=== PATIENT | male | born 1940 | race Asian ===

== ENCOUNTER 2020-08-16 14:22 | Emergency (ER) | payer OTHER ==
[~2020-08-16] VITALS: Ht 182.9 cm; Wt 131.5 kg
[2020-08-16 14:35] VITALS: TEMP 97
[2020-08-16 15:26] LABS: PLATELET COUNT 136 K/uL (142-355)
[2020-08-16 15:35] LABS: POTASSIUM 3.8 mmol/L (3.6-5.2); SODIUM 133 mmol/L (136-145)
[2020-08-16 18:33] VITALS: BP 121/55
== END 2020-08-16 18:33 | disposition home or self-care (01) ==
LOC: ED 14:22
PROVIDERS: Emergency Medicine Emergency Medical Services
DX: J20.9 Acute bronchitis, unspecified (principal); I50.9 Heart failure, unspecified; Z20.822 Contact with and (suspected) exposure to COVID-19
CPT/HCPCS: 36415; 80053; 83880; 84484; 85027; 85379; 85610; 87040; 87635; 93005; 94664; 96360; 96361; 96365; 99284; J0696; U0003

== ENCOUNTER 2020-09-07 09:13 | Emergency (ER) | payer OTHER ==
[2020-09-19 14:55] LABS: PLATELET COUNT 207 K/uL (142-355)
[2020-09-20 09:15] LABS: PARTIAL THROMBOPLASTIN TIME 24.7 SECONDS (24.5-33.6)
[2020-09-20 09:16] LABS: POTASSIUM 4.3 mmol/L (3.6-5.2); SODIUM 141 mmol/L (136-145)
== END 2020-09-07 11:40 | disposition home or self-care (01) ==
LOC: ED 09:13
PROVIDERS: Hospitalist
DX: I50.9 Heart failure, unspecified (principal); J81.1 Chronic pulmonary edema; I48.20 Chronic atrial fibrillation, unspecified; R06.09 Other forms of dyspnea; Z93.0 Tracheostomy status; Z93.1 Gastrostomy status; I44.7 Left bundle-branch block, unspecified; Z20.828 Contact with and (suspected) exposure to other viral communicable diseases
CPT/HCPCS: 36600; 80053; 82550; 82553; 82805; 84484; 85027; 85610; 85730; 87635; 93005; 96374; 96375; 99284; J1940; J2270; J3490; U0003